=== PATIENT | male | born 1975 | race Caucasian/White ===

== ENCOUNTER 2016-12-20 11:07 | Inpatient (IN) | payer OTHER ==
[2016-12-20 13:10] VITALS: BMI 28.1
--- NOTE | 2016-12-20 15:29 | HP ---
COWS - Scale Resting Pulse: 0= [place] 80 or Below Sweatin=Flushed/Facial Moisture Restless Observation: 1= Difficult to Sit Still Pupil Size: 0= Normal to Room Light Bone or Joint Aches: 2= Severe Diffuse Aches Runny Nose/ Eye Tearin= Runny Nose/Eyes GI Upset > 30mins: 0= None Tremor Observation: 2= Slight Tremor Visible Yawning Observation: 2= >3x During Session Anxiety or Irritability: 2=Irritable/Anxious Goose Flesh Skin: 3=Piloerection COWS Score: 16 CIWA Score - CIWA Score Nausea/Vomitin-Mild Nausea/No Vomiting Muscle Tremors: 4-Moderate,w/Arms Extend Anxiety: 3 Agitation: 4-Moderately Restless Paroxysmal Sweats: 3 Orientation: 0-Oriented Tacttile Disturbances: 0-None Auditory Disturbances: 0-None Visual Disturbances: 0-None Headache: 0-None Present CIWA-Ar Total Score: 15 Admission ROS BHS - HPI Chief Complaint: I am here to detox. Allergies/Adverse Reactions: Allergies Allergy/AdvReac Type Severity Reaction Status Date / Time No Known Allergies Allergy Verified 12/20/16 14:47 History of Present Illness: pt is a 41yr old male with a history of alcohol and heroin dependence seeking detox for treatment. Exam Limitations: No Limitations - Ebola screening Have you traveled outside of the country in the last 21 days: No Have you had contact with anyone from an Ebola affected area: No Have you been sick,other than usual withdrawal symptoms: No Do you have a fever: No - Review of Systems Constitutional: Chills, Diaphoresis, Night Sweats, Changes in sleep EENT: reports: Tearing, Nose Congestion Respiratory: reports: No Symptoms reported Cardiac: reports: No Symptoms Reported GI: reports: Poor Appetite, Poor Fluid Intake : reports: No Symptoms Reported Musculoskeletal: reports: Joint Stiffness Integumentary: reports: Flushing, Sweating Endocrine: reports: Excessive Sweating, Flushing, Intolerance to Cold, Intolerance to Heat Hematology: reports: No Symptoms Reported Psychiatric: reports: Judgement Intact, Mood/Affect Appropiate, Orientated x3, Agitated, Anxious Other Systems: Reviewed and Negative Patient History - Patient Medical History Hx Anemia: No Hx Asthma: No Hx Chronic Obstructive Pulmonary Disease (COPD): No Hx Cancer: No Hx Cardiac Disorders: No Hx Congestive Heart Failure: No Hx Hypertension: No Hx Hypercholesterolemia: No Hx Pacemaker: No HX Cerebrovascular Accident: No Hx Seizures: No Hx Dementia: No Hx Diabetes: No Hx Gastrointestinal Disorders: No Hx Liver Disease: No Hx Genitourinary Disorders: No Hx Sexually Transmitted Disorders: No Hx Renal Disease (ESRD): No Hx Thyroid Disease: No Hx Human Immunodeficiency Virus (HIV): No (negative) Hx Hepatitis C: No (negative) Hx Depression: No Hx Suicide Attempt: No Hx Bipolar Disorder: No Hx Schizophrenia: No - Patient Surgical History Past Surgical History: No Hx Neurologic Surgery: No Hx Cataract Extraction: No Hx Cardiac Surgery: No Hx Lung Surgery: No Hx Breast Surgery: No Hx Breast Biopsy: No Hx Abdominal Surgery: No Hx Appendectomy: No Hx Cholecystectomy: No Hx Genitourinary Surgery: No Hx Section: No Hx Orthopedic Surgery: No Anesthesia Reaction: No - PPD History Previous Implant?: Yes Documented Results: Negative w/o proof Implanted On Prior R Admission?: No PPD to be Administered?: Yes - Reproductive History Patient is a Female of Child Bearing Age (11 -55 yrs old): No - Smoking Cessation Smoking history: Current every day smoker Have you smoked in the past 12 months: Yes Aproximately how many cigarettes per day: 20 Hx Chewing Tobacco Use: No Initiated information on smoking cessation: Yes 'Breaking Loose' booklet given: 12/20/16 - Substance & Tx. History Hx Alcohol Use: Yes Hx Substance Use: Yes Substance Use Type: Alcohol, Heroin, Marijuana Hx Substance Use Treatment: Yes - Substances Abused Heroin Route: Injection Frequency: Daily Amount used: 8-10 bags Age of first use: 39 Date of Last Use: 12/19/16 Alcohol-beer Route: Oral Frequency: Daily Amount used: 2-6 pks. Age of first use: 14 Date of Last Use: 12/19/16 Marijuana Route: Smoking Frequency: Daily Amount used: $10 Age of first use: 14 Date of Last Use: 12/19/16 Family Disease History - Family Disease History Family History: Denies Admission Physical Exam BHS - Vital Signs Vital Signs: Vital Signs - 24 hr 12/20/16 13:07 Temperature 97.2 F L Pulse Rate 66 Respiratory 18 Rate Blood Pressure 134/74 - Physical General Appearance: Yes: Appropriately Dressed, Moderate Distress, Tremorous, Irritable, Sweating, Anxious HEENTM: Yes: Hearing grossly Normal Respiratory: Yes: Lungs Clear, Normal Breath Sounds, No Respiratory Distress Neck: Yes: No masses,lesions,Nodules Breast: Yes: Within Normal Limits Cardiology: Yes: Regular Rhythm, Regular Rate, S1, S2 Abdominal: Yes: Normal Bowel Sounds, Non Tender, Soft Genitourinary: Yes: Within Normal Limits Back: Yes: Normal Inspection Musculoskeletal: Yes: full range of Motion, Back pain Extremities: Yes: Normal Capillary Refill, Normal Inspection, Tremors Neurological: Yes: Fully Oriented, Alert, Normal Response Integumentary: Yes: Normal Color, Dry, Diaphoresis, Track Messer Lymphatic: Yes: Within Normal Limits - Diagnostic (1) Alcohol dependence with uncomplicated withdrawal Current Visit: Yes Status: Chronic (2) Opioid dependence with withdrawal Current Visit: Yes Status: Chronic (3) Nicotine dependence Current Visit: Yes Status: Chronic Qualifiers: Nicotine product type: cigarettes Substance use status: uncomplicated Qualified Code(s): F17.210 - Nicotine dependence, cigarettes, uncomplicated Cleared for Admission [facility] - Detox or Rehab [facility] Level of Care: Medically Managed Detox Regimen/Protocol: Methadone/Librium [facility] Breath Alcohol Content Breath Alcohol Content: 0 Urine Drug Screen - Results Drug Screen Negative: No Urine Drug Screen Results: THC-Marijuana, JESSE-Cocaine, OPI-Opiates
[2016-12-20] MEDS ORDERED: MENTHOL/PHENOL 1 EACH UD MM PRN (15:31)
[2016-12-20] MEDS ORDERED: ACETAMINOPHEN 325 MG TABLET (FP) PO PRN (15:31)
[2016-12-20] MEDS ORDERED: MAG HYDROX/AL HYDROX/SIMETH 30 ML UNIT-DOSE CUP PO PRN (15:31)
[2016-12-20] MEDS ORDERED: LOPERAMIDE HCL 2 MG CAPSULE PO PRN (15:31)
[2016-12-20] MEDS ORDERED: P-EPHED 60MG/TRIPROLIDI 2.5MG TABLET PO PRN (15:31)
[2016-12-20] MEDS ORDERED: NICOTINE POLACRILEX 4 MG GUM BUC PRN (15:31)
[2016-12-20] MEDS ORDERED: chlordiazePOXIDE HCL 25 MG CAPSULE PO PRN (15:31)
[2016-12-20] MEDS ORDERED: guaiFENesin/D-METHORPHAN HB 10 ML UNIT-DOSE CUPS PO PRN (15:31)
[2016-12-20] MEDS ORDERED: METHADONE HCL 10 MG TABLET (FOR DETOX USE ONLY) PO ONE ×2 (15:48→23:00)
[2016-12-20] MEDS ORDERED: chlordiazePOXIDE HCL 25 MG CAPSULE PO ONE (15:48)
[2016-12-20] MEDS: chlordiazePOXIDE HCL 25 MG CAPSULE PO SCH ×2 (16:52→22:11)
[2016-12-20] MEDS: diphenhydrAMINE HCL 50 MG CAPSULE PO PRN (22:12)
[2016-12-20] MEDS: THIAMINE HCL 100 MG TABLET (FP) PO SCH (22:12)
[2016-12-21] MEDS: hydrOXYzine PAMOATE 50 MG CAPSULE (FP) PO PRN (02:56)
[2016-12-21] MEDS: chlordiazePOXIDE HCL 25 MG CAPSULE PO SCH ×4 (05:28→22:44)
[2016-12-21] MEDS ORDERED: METHADONE HCL 10 MG TABLET (FOR DETOX USE ONLY) PO SCH (10:00)
[2016-12-21 10:02] LABS: MCH 30.1 pg (25.7-33.7); MCHC 33.3 g/dl (32.0-35.9); MEAN CELL VOLUME 90.5 fl (80-96); MEAN PLT VOLUME 10.6 fl (7.5-11.1); PLATELET COUNT 164 K/MM3 (134-434); RDW 13.9 % (11.9-15.9); WHITE BLOOD COUNT 5.9 K/mm3 (4.0-10.0)
[2016-12-21 10:33] LABS: ALBUMIN 4.2 g/dl (3.4-5.0); ALK PHOS 73 U/L (45-117); ANION GAP 9 (8-16); BILIRUBIN,TOTAL 0.7 mg/dL (0.2-1.0); CALCIUM 9.2 mg/dL (8.5-10.1); CO2 28 mmol/L (21-32); COCKROFT - GAULT 122.21; CREATININE 0.9 mg/dL (0.7-1.3); GLUCOSE,RANDOM 143 mg/dL (74-106); SGOT/AST 24 U/L (15-37); SGPT/ALT 30 U/L (12-78); TOT PROT 7.8 g/dl (6.4-8.2)
[2016-12-21] MEDS: PRENATAL VITAMINS W/ FOLIC ACID TABLET (FP) PO SCH (10:39)
[2016-12-21] MEDS: NICOTINE 21 MG/24 HOURS TOPICAL PATCH TD SCH (10:39)
--- NOTE | 2016-12-21 12:25 | PN ---
[facility] CIWA - CIWA Score Nausea/Vomitin-No Nausea/No Vomiting Muscle Tremors: 4-Moderate,w/Arms Extend Anxiety: 2 Agitation: 2 Paroxysmal Sweats: 1-Minimal Palms Moist Orientation: 0-Oriented Tacttile Disturbances: 3-Moderate Itch/Numb/Burn Auditory Disturbances: 2-Mild Harshness/Frighten Visual Disturbances: 3-Moderate Sensitivity Headache: 0-None Present CIWA-Ar Total Score: 17 BHS COWS - Scale Resting Pulse: 0= [place] 80 or Below Sweatin= Chills/Flushing Restless Observation: 1= Difficult to Sit Still Pupil Size: 0= Normal to Room Light Bone or Joint Aches: 2= Severe Diffuse Aches Runny Nose/ Eye Tearin= Runny Nose/Eyes GI Upset > 30mins: 1= Stomach Cramp Tremor Observation of Outstretched Hands: 2= Slight Tremor Visible Yawning Observation: 1= 1-2x During Session Anxiety or Irritability: 2=Irritable/Anxious Goose Flesh Skin: 3=Piloerection COWS Score: 15 [facility] Progress Note (SOAP) Subjective: Tremors, Interrupted Sleep, Body Aches. Objective: PT. A & O X 3, OBSERVED AMBULATING ON UNIT. 12/21/16 12:23 12/21/16 12:28 Vital Signs Temperature 98.2 F 12/21/16 09:13 Pulse Rate 76 12/21/16 09:13 Respiratory Rate 18 12/21/16 09:13 Blood Pressure 132/80 12/21/16 09:13 O2 Sat by Pulse Oximetry (%) Laboratory Tests 12/21/16 12/21/16 06:00 06:00 WBC 5.9 RBC 4.64 Hgb 14.0 Hct 42.0 MCV 90.5 MCHC 33.3 RDW 13.9 Plt Count 164 MPV 10.6 Sodium 139 Potassium 4.1 Chloride 102 Carbon Dioxide 28 Anion Gap 9 BUN 15 Creatinine 0.9 Creat Clearance w eGFR > 60 Random Glucose 143 H Calcium 9.2 Total Bilirubin 0.7 AST 24 ALT 30 Alkaline Phosphatase 73 Total Protein 7.8 Albumin 4.2 LABS NOTED. 12/21/16 12:30 Assessment: 12/21/16 12:28 WITHDRAWAL SYMPTOMS. Plan: CONTINUE DETOX. [facility] TOMORROW AM FOR ELEVATED ADMISSION RANDOM GLUCOSE LEVEL.
--- NOTE | 2016-12-21 13:12 | EKG ---
Test Reason : Blood Pressure : / mmHG Vent. Rate : 063 BPM Atrial Rate : 063 BPM P-R Int : 142 ms QRS Dur : 082 ms QT Int : 374 ms P-R-T Axes : 060 035 030 degrees QTc Int : 382 ms NORMAL SINUS RHYTHM POSSIBLE LEFT ATRIAL ENLARGEMENT LEFT VENTRICULAR HYPERTROPHY ABNORMAL ECG NO PREVIOUS ECGS AVAILABLE Confirmed by BOLIVAR BARR MD ([id number]) on 12/21/2016 1:12:03 PM Referred By: Confirmed By:BOLIVAR BARR MD
[2016-12-21] MEDS: MAGNESIUM HYDROX 2400MG/30ML ORAL SUSPENSION 30 ML CUP PO PRN (21:41)
[2016-12-21] MEDS: diphenhydrAMINE HCL 50 MG CAPSULE PO PRN (22:43)
[2016-12-21] MEDS: THIAMINE HCL 100 MG TABLET (FP) PO SCH (22:43)
[2016-12-22] MEDS: diphenhydrAMINE HCL 50 MG CAPSULE PO PRN ×2 (00:41→22:36)
[2016-12-22] MEDS: chlordiazePOXIDE HCL 25 MG CAPSULE PO SCH ×2 (05:56→10:45)
[2016-12-22] MEDS: METHADONE HCL 5 MG TABLET (FOR DETOX USE ONLY) PO SCH (10:45)
[2016-12-22] MEDS: PRENATAL VITAMINS W/ FOLIC ACID TABLET (FP) PO SCH (10:46)
[2016-12-22] MEDS: NICOTINE 21 MG/24 HOURS TOPICAL PATCH TD SCH (10:46)
--- NOTE | 2016-12-22 11:10 | PN ---
[facility] CIWA - CIWA Score Nausea/Vomitin-No Nausea/No Vomiting Muscle Tremors: 4-Moderate,w/Arms Extend Anxiety: 3 Agitation: 3 Paroxysmal Sweats: 3 Orientation: 0-Oriented Tacttile Disturbances: 0-None Auditory Disturbances: 0-None Visual Disturbances: 0-None Headache: 0-None Present CIWA-Ar Total Score: 13 BHS COWS - Scale Resting Pulse: 0= [place] 80 or Below Sweatin=Flushed/Facial Moisture Restless Observation: 1= Difficult to Sit Still Pupil Size: 0= Normal to Room Light Bone or Joint Aches: 1= Mild Discomfort Runny Nose/ Eye Tearin= Runny Nose/Eyes GI Upset > 30mins: 2= Nausea/Diarrhea Tremor Observation of Outstretched Hands: 2= Slight Tremor Visible Yawning Observation: 1= 1-2x During Session Anxiety or Irritability: 2=Irritable/Anxious Goose Flesh Skin: 0=Smooth Skin COWS Score: 13 [facility] Progress Note (SOAP) Subjective: Anxiety,tremors,sweating,interrupted sleep,restless,muscle aches. Objective: 12/22/16 11:09 Vital Signs - 8 hr 12/22/16 12/22/16 12/22/16 03:30 06:17 09:23 Temperature 97.5 F L 98.2 F Pulse Rate 61 77 Respiratory 18 16 18 Rate Blood Pressure 137/83 136/85 Laboratory Tests 12/21/16 12/21/16 12/21/16 06:00 06:00 06:00 WBC 5.9 RBC 4.64 Hgb 14.0 Hct 42.0 MCV 90.5 MCHC 33.3 RDW 13.9 Plt Count 164 MPV 10.6 Sodium 139 Potassium 4.1 Chloride 102 Carbon Dioxide 28 Anion Gap 9 BUN 15 Creatinine 0.9 Creat Clearance w eGFR > 60 POC Glucometer Random Glucose 143 H Calcium 9.2 Total Bilirubin 0.7 AST 24 ALT 30 Alkaline Phosphatase 73 Total Protein 7.8 Albumin 4.2 RPR Titer Nonreactive 12/22/16 05:55 WBC RBC Hgb Hct MCV MCHC RDW Plt Count MPV Sodium Potassium Chloride Carbon Dioxide Anion Gap BUN Creatinine Creat Clearance w eGFR POC Glucometer 130 Random Glucose Calcium Total Bilirubin AST ALT Alkaline Phosphatase Total Protein Albumin RPR Titer labs noted Assessment: 12/22/16 11:10 Withdrawal Sx. Plan: Continue detox
[2016-12-22 14:42] LABS: URINE APPEARANCE CLEAR; URINE BILIRUBIN NEGATIVE (NEGATIVE); URINE BLOOD NEGATIVE (NEGATIVE); URINE COLOR STRAW; URINE GLUCOSE (UA) NEGATIVE (NEGATIVE); URINE KETONE NEGATIVE (NEGATIVE); URINE LEUK ESTERASE NEGATIVE (NEGATIVE); URINE NITRITE NEGATIVE (NEGATIVE); URINE PROTEIN NEGATIVE (NEGATIVE); URINE UROBILINOGEN NEGATIVE E.U./dl (0.2-1.0)
[2016-12-22] MEDS: chlordiazePOXIDE 5 MG CAPSULE PO SCH ×2 (18:00→22:34)
[2016-12-22] MEDS: MAGNESIUM HYDROX 2400MG/30ML ORAL SUSPENSION 30 ML CUP PO PRN (18:30)
[2016-12-22] MEDS: IBUPROFEN 400 MG TABLET (FP) PO PRN (18:31)
[2016-12-22] MEDS: THIAMINE HCL 100 MG TABLET (FP) PO SCH (22:34)
[2016-12-23] MEDS: IBUPROFEN 400 MG TABLET (FP) PO PRN ×2 (01:05→13:49)
[2016-12-23] MEDS: diphenhydrAMINE HCL 50 MG CAPSULE PO PRN ×2 (01:06→22:22)
[2016-12-23] MEDS: chlordiazePOXIDE 5 MG CAPSULE PO SCH ×2 (05:54→10:30)
[2016-12-23] MEDS: NICOTINE 21 MG/24 HOURS TOPICAL PATCH TD SCH (10:30)
[2016-12-23] MEDS: PRENATAL VITAMINS W/ FOLIC ACID TABLET (FP) PO SCH (10:30)
[2016-12-23] MEDS: METHADONE HCL 5 MG TABLET (FOR DETOX USE ONLY) PO SCH (10:30)
--- NOTE | 2016-12-23 11:58 | PN ---
BHS Progress Note (SOAP) Subjective: sweats, back pain,interrupted sleep Objective: 12/23/16 11:57 Vital Signs - 8 hr 12/23/16 12/23/16 06:25 10:21 Temperature 98.1 F 97.9 F Pulse Rate 75 79 Respiratory 16 18 Rate Blood Pressure 127/78 128/86 Laboratory Last Values WBC 5.9 K/mm3 (4.0-10.0) 12/21/16 06:00 RBC 4.64 M/mm3 (4.00-5.60) 12/21/16 06:00 Hgb 14.0 GM/dL (11.7-16.9) 12/21/16 06:00 Hct 42.0 % (35.4-49) 12/21/16 06:00 MCV 90.5 fl (80-96) 12/21/16 06:00 MCHC 33.3 g/dl (32.0-35.9) 12/21/16 06:00 RDW 13.9 % (11.9-15.9) 12/21/16 06:00 Plt Count 164 K/MM3 (134-434) 12/21/16 06:00 MPV 10.6 fl (7.5-11.1) 12/21/16 06:00 Sodium 139 mmol/L (136-145) 12/21/16 06:00 Potassium 4.1 mmol/L (3.5-5.1) 12/21/16 06:00 Chloride 102 mmol/L (98-107) 12/21/16 06:00 Carbon Dioxide 28 mmol/L (21-32) 12/21/16 06:00 Anion Gap 9 (8-16) 12/21/16 06:00 BUN 15 mg/dL (7-18) 12/21/16 06:00 Creatinine 0.9 mg/dL (0.7-1.3) 12/21/16 06:00 Creat Clearance w eGFR > 60 (>60) 12/21/16 06:00 POC Glucometer 153 UNITS (()) 12/23/16 05:56 Random Glucose 143 mg/dL (74-106) H 12/21/16 06:00 Calcium 9.2 mg/dL (8.5-10.1) 12/21/16 06:00 Total Bilirubin 0.7 mg/dL (0.2-1.0) 12/21/16 06:00 AST 24 U/L (15-37) 12/21/16 06:00 ALT 30 U/L (12-78) 12/21/16 06:00 Alkaline Phosphatase 73 U/L (45-117) 12/21/16 06:00 Total Protein 7.8 g/dl (6.4-8.2) 12/21/16 06:00 Albumin 4.2 g/dl (3.4-5.0) 12/21/16 06:00 Urine Color Straw 12/22/16 12:45 Urine Appearance Clear 12/22/16 12:45 Urine pH 7.0 (5.0-8.0) 12/22/16 12:45 Ur Specific [place] 1.015 (1.005-1.025) 12/22/16 12:45 Urine Protein Negative (NEGATIVE) 12/22/16 12:45 Urine Glucose (UA) Negative (NEGATIVE) 12/22/16 12:45 Urine Ketones Negative (NEGATIVE) 12/22/16 12:45 Urine Blood Negative (NEGATIVE) 12/22/16 12:45 Urine Nitrite Negative (NEGATIVE) 12/22/16 12:45 Urine Bilirubin Negative (NEGATIVE) 12/22/16 12:45 Urine Urobilinogen Negative E.U./dl (0.2-1.0) 12/22/16 12:45 Ur Leukocyte Esterase Negative (NEGATIVE) 12/22/16 12:45 RPR Titer Nonreactive (NONREACTIVE) 12/21/16 06:00 labs noted Assessment: 12/23/16 11:57 withdrawal sx Plan: continue detox
[2016-12-23] MEDS: MAGNESIUM CITRATE 300 ML BOTTLE PO PRN (13:50)
[2016-12-23] MEDS: chlordiazePOXIDE HCL 10 MG CAPSULE PO SCH ×2 (17:35→22:22)
[2016-12-23] MEDS: THIAMINE HCL 100 MG TABLET (FP) PO SCH (22:22)
[2016-12-23] MEDS: hydrOXYzine PAMOATE 50 MG CAPSULE (FP) PO PRN (22:22)
[2016-12-24] MEDS: chlordiazePOXIDE HCL 10 MG CAPSULE PO SCH ×2 (05:41→10:29)
[2016-12-24] MEDS ORDERED: METHADONE HCL 10 MG TABLET (FOR DETOX USE ONLY) PO SCH (10:00)
[2016-12-24] MEDS: PRENATAL VITAMINS W/ FOLIC ACID TABLET (FP) PO SCH (10:29)
[2016-12-24] MEDS: NICOTINE 21 MG/24 HOURS TOPICAL PATCH TD SCH (10:29)
--- NOTE | 2016-12-24 14:33 | PN ---
BHS Progress Note (SOAP) Subjective: Constipation (had small bm yesterday), anxious, interrupted sleep Objective: 12/24/16 14:27 Last Vital Signs Temp Pulse Resp BP Pulse Ox 96.5 F L 74 18 127/80 12/24/16 13:44 12/24/16 13:44 12/24/16 13:44 12/24/16 13:44 Laboratory Tests 12/21/16 12/21/16 12/21/16 06:00 06:00 06:00 WBC 5.9 RBC 4.64 Hgb 14.0 Hct 42.0 MCV 90.5 MCHC 33.3 RDW 13.9 Plt Count 164 MPV 10.6 Sodium 139 Potassium 4.1 Chloride 102 Carbon Dioxide 28 Anion Gap 9 BUN 15 Creatinine 0.9 Creat Clearance w eGFR > 60 POC Glucometer Random Glucose 143 H Calcium 9.2 Total Bilirubin 0.7 AST 24 ALT 30 Alkaline Phosphatase 73 Total Protein 7.8 Albumin 4.2 Urine Color Urine Appearance Urine pH Ur Specific [place] Urine Protein Urine Glucose (UA) Urine Ketones Urine Blood Urine Nitrite Urine Bilirubin Urine Urobilinogen Ur Leukocyte Esterase RPR Titer Nonreactive 12/22/16 12/22/16 12/23/16 05:55 12:45 05:56 WBC RBC Hgb Hct MCV MCHC RDW Plt Count MPV Sodium Potassium Chloride Carbon Dioxide Anion Gap BUN Creatinine Creat Clearance w eGFR POC Glucometer 130 153 Random Glucose Calcium Total Bilirubin AST ALT Alkaline Phosphatase Total Protein Albumin Urine Color Straw Urine Appearance Clear Urine pH 7.0 Ur Specific [place] 1.015 Urine Protein Negative Urine Glucose (UA) Negative Urine Ketones Negative Urine Blood Negative Urine Nitrite Negative Urine Bilirubin Negative Urine Urobilinogen Negative Ur Leukocyte Esterase Negative RPR Titer 12/24/16 05:44 WBC RBC Hgb Hct MCV MCHC RDW Plt Count MPV Sodium Potassium Chloride Carbon Dioxide Anion Gap BUN Creatinine Creat Clearance w eGFR POC Glucometer 102 Random Glucose Calcium Total Bilirubin AST ALT Alkaline Phosphatase Total Protein Albumin Urine Color Urine Appearance Urine pH Ur Specific [place] Urine Protein Urine Glucose (UA) Urine Ketones Urine Blood Urine Nitrite Urine Bilirubin Urine Urobilinogen Ur Leukocyte Esterase RPR Titer Labs noted: serum glucose 130, finger stick 102 Assessment: 12/24/16 14:28 Withdrawal symptoms Noted with hyperglycemia Plan: Continue detox Hyperglycemia: diet and exercise as tolerated to lose weight, avoid sweets, follow up with PCP post discharge for monitoring
[2016-12-24] MEDS: MAGNESIUM CITRATE 300 ML BOTTLE PO PRN (15:15)
[2016-12-24] MEDS: THIAMINE HCL 100 MG TABLET (FP) PO SCH (22:40)
[2016-12-24] MEDS: IBUPROFEN 400 MG TABLET (FP) PO PRN (22:41)
[2016-12-24] MEDS: diphenhydrAMINE HCL 50 MG CAPSULE PO PRN (22:42)
[2016-12-25] MEDS ORDERED: METHADONE HCL 5 MG TABLET (FOR DETOX USE ONLY) PO SCH (06:00)
[2016-12-25] MEDS: PRENATAL VITAMINS W/ FOLIC ACID TABLET (FP) PO SCH (10:44)
[2016-12-25] MEDS: NICOTINE 21 MG/24 HOURS TOPICAL PATCH TD SCH (10:44)
[2016-12-25] MEDS: IBUPROFEN 400 MG TABLET (FP) PO PRN ×2 (10:48→22:21)
[2016-12-25] MEDS: CYCLOBENZAPRINE HCL 10 MG TABLET (FP) PO PRN ×2 (12:25→22:19)
--- NOTE | 2016-12-25 13:37 | PN ---
BHS Progress Note (SOAP) Subjective: Anxious, interrupted sleep, LBP and spasm, sweating Objective: 12/25/16 13:34 Last Vital Signs Temp Pulse Resp BP Pulse Ox 98.1 F 82 18 137/85 12/25/16 13:18 12/25/16 13:18 12/25/16 13:18 12/25/16 13:18 Laboratory Tests 12/21/16 12/21/16 12/21/16 06:00 06:00 06:00 WBC 5.9 RBC 4.64 Hgb 14.0 Hct 42.0 MCV 90.5 MCHC 33.3 RDW 13.9 Plt Count 164 MPV 10.6 Sodium 139 Potassium 4.1 Chloride 102 Carbon Dioxide 28 Anion Gap 9 BUN 15 Creatinine 0.9 Creat Clearance w eGFR > 60 POC Glucometer Random Glucose 143 H Calcium 9.2 Total Bilirubin 0.7 AST 24 ALT 30 Alkaline Phosphatase 73 Total Protein 7.8 Albumin 4.2 Urine Color Urine Appearance Urine pH Ur Specific [place] Urine Protein Urine Glucose (UA) Urine Ketones Urine Blood Urine Nitrite Urine Bilirubin Urine Urobilinogen Ur Leukocyte Esterase RPR Titer Nonreactive 12/22/16 12/22/16 12/23/16 05:55 12:45 05:56 WBC RBC Hgb Hct MCV MCHC RDW Plt Count MPV Sodium Potassium Chloride Carbon Dioxide Anion Gap BUN Creatinine Creat Clearance w eGFR POC Glucometer 130 153 Random Glucose Calcium Total Bilirubin AST ALT Alkaline Phosphatase Total Protein Albumin Urine Color Straw Urine Appearance Clear Urine pH 7.0 Ur Specific [place] 1.015 Urine Protein Negative Urine Glucose (UA) Negative Urine Ketones Negative Urine Blood Negative Urine Nitrite Negative Urine Bilirubin Negative Urine Urobilinogen Negative Ur Leukocyte Esterase Negative RPR Titer 12/24/16 05:44 WBC RBC Hgb Hct MCV MCHC RDW Plt Count MPV Sodium Potassium Chloride Carbon Dioxide Anion Gap BUN Creatinine Creat Clearance w eGFR POC Glucometer 102 Random Glucose Calcium Total Bilirubin AST ALT Alkaline Phosphatase Total Protein Albumin Urine Color Urine Appearance Urine pH Ur Specific [place] Urine Protein Urine Glucose (UA) Urine Ketones Urine Blood Urine Nitrite Urine Bilirubin Urine Urobilinogen Ur Leukocyte Esterase RPR Titer Labs noted Assessment: 12/25/16 13:35 Withdrawal symptoms Plan: Continue detox Flexeril 10mg PO TID PRN, ambien 10mg PO x 1 dose tonight
[2016-12-25] MEDS: MAGNESIUM HYDROX 2400MG/30ML ORAL SUSPENSION 30 ML CUP PO PRN (15:35)
[2016-12-25 21:25] VITALS: TEMP 97.7
[2016-12-25] MEDS ORDERED: ZOLPIDEM TARTRATE 10 MG TABLET (PARK CARE ONLY) PO ONE (22:00)
[2016-12-25] MEDS: THIAMINE HCL 100 MG TABLET (FP) PO SCH (22:19)
[2016-12-26 06:15] VITALS: BP 140/89; PULSE 64
--- NOTE | 2016-12-26 08:48 | DS ---
[facility] Detox Discharge Summary Admission Date: 12/20/16 Discharge Date: 12/26/16 - History Present History: Alcohol Dependence, Opioid Dependence Pertinent Past History: Denies - Physical Exam Results Vital Signs: Vital Signs Temperature 97.7 F 12/26/16 06:15 Pulse Rate 64 12/26/16 06:15 Respiratory Rate 18 12/26/16 06:15 Blood Pressure 140/89 12/26/16 06:15 O2 Sat by Pulse Oximetry (%) Pertinent Admission Physical Exam Findings: Withdrawal sx. Laboratory Last Values WBC 5.9 K/mm3 (4.0-10.0) 12/21/16 06:00 RBC 4.64 M/mm3 (4.00-5.60) 12/21/16 06:00 Hgb 14.0 GM/dL (11.7-16.9) 12/21/16 06:00 Hct 42.0 % (35.4-49) 12/21/16 06:00 MCV 90.5 fl (80-96) 12/21/16 06:00 MCHC 33.3 g/dl (32.0-35.9) 12/21/16 06:00 RDW 13.9 % (11.9-15.9) 12/21/16 06:00 Plt Count 164 K/MM3 (134-434) 12/21/16 06:00 MPV 10.6 fl (7.5-11.1) 12/21/16 06:00 Sodium 139 mmol/L (136-145) 12/21/16 06:00 Potassium 4.1 mmol/L (3.5-5.1) 12/21/16 06:00 Chloride 102 mmol/L (98-107) 12/21/16 06:00 Carbon Dioxide 28 mmol/L (21-32) 12/21/16 06:00 Anion Gap 9 (8-16) 12/21/16 06:00 BUN 15 mg/dL (7-18) 12/21/16 06:00 Creatinine 0.9 mg/dL (0.7-1.3) 12/21/16 06:00 Creat Clearance w eGFR > 60 (>60) 12/21/16 06:00 POC Glucometer 102 UNITS (()) 12/24/16 05:44 Random Glucose 143 mg/dL (74-106) H 12/21/16 06:00 Calcium 9.2 mg/dL (8.5-10.1) 12/21/16 06:00 Total Bilirubin 0.7 mg/dL (0.2-1.0) 12/21/16 06:00 AST 24 U/L (15-37) 12/21/16 06:00 ALT 30 U/L (12-78) 12/21/16 06:00 Alkaline Phosphatase 73 U/L (45-117) 12/21/16 06:00 Total Protein 7.8 g/dl (6.4-8.2) 12/21/16 06:00 Albumin 4.2 g/dl (3.4-5.0) 12/21/16 06:00 Urine Color Straw 12/22/16 12:45 Urine Appearance Clear 12/22/16 12:45 Urine pH 7.0 (5.0-8.0) 12/22/16 12:45 Ur Specific [place] 1.015 (1.005-1.025) 12/22/16 12:45 Urine Protein Negative (NEGATIVE) 12/22/16 12:45 Urine Glucose (UA) Negative (NEGATIVE) 12/22/16 12:45 Urine Ketones Negative (NEGATIVE) 12/22/16 12:45 Urine Blood Negative (NEGATIVE) 12/22/16 12:45 Urine Nitrite Negative (NEGATIVE) 12/22/16 12:45 Urine Bilirubin Negative (NEGATIVE) 12/22/16 12:45 Urine Urobilinogen Negative E.U./dl (0.2-1.0) 12/22/16 12:45 Ur Leukocyte Esterase Negative (NEGATIVE) 12/22/16 12:45 RPR Titer Nonreactive (NONREACTIVE) 12/21/16 06:00 labs noted - Treatment Hospital Course: Detox Protocol Followed, Detoxed Safely, Responded well, Discharged Condition Good, Rehab Referral Accepted Patient has Accepted a Rehab Referral to: [facility] - Medication Discharge Medications: Ambulatory Orders NK [No Known Home Medication] 12/20/16 - Diagnosis (1) Alcohol dependence with uncomplicated withdrawal Current Visit: Yes Status: Chronic (2) Nicotine dependence Current Visit: Yes Status: Chronic Qualifiers: Nicotine product type: cigarettes Substance use status: uncomplicated Qualified Code(s): F17.210 - Nicotine dependence, cigarettes, uncomplicated (3) Opioid dependence with withdrawal Current Visit: Yes Status: Chronic - AMA Did Patient Leave Against Medical Advice: No
[2016-12-26] MEDS: NICOTINE 21 MG/24 HOURS TOPICAL PATCH TD SCH (09:27)
[2016-12-26] MEDS: PRENATAL VITAMINS W/ FOLIC ACID TABLET (FP) PO SCH (09:27)
== END 2016-12-26 09:30 | disposition home or self-care (01) | DRG 773 ==
LOC: YASAS 11:07 → Y3N 15:12
PROVIDERS: ADMIT Internal Medicine; ATTEND Internal Medicine
PROC: HZ2ZZZZ Detoxification Services for Substance Abuse Treatment (ICD-10-PCS; principal; 2016-12-20)
DX: F11.23 Opioid dependence with withdrawal (principal); F10.230 Alcohol dependence with withdrawal, uncomplicated; F17.210 Nicotine dependence, cigarettes, uncomplicated; R73.9 Hyperglycemia, unspecified
CPT/HCPCS: 36415; 80053; 81003; 85027; 86593; 93005; 93010